=== PATIENT | male | born 1935 | race Caucasian/White ===

== ENCOUNTER 2018-10-28 22:10 | Inpatient (IN) ==
[2018-10-29] MEDS ORDERED: Fluticasone Propionate Nasal 50 MCG/SPRAY BOTTLE NS PRN (01:11)
[2018-10-29] MEDS ORDERED: Ipratropium/Albuterol Neb 3 ML IH PRN (01:12)
--- NOTE | 2018-10-29 01:49 | Internal Med History&Physical ---
Date of Encounter: 10/29/18 Time of Encounter: 01:49 Internal Medicine - H&P: HPI Chief complaint: syncope Admitted From: Hospital to Hospital Transfer Plans for Post Hospital Care: Transfer Jail Facility History of present illness: Rafi Tanner is an 83-year-old man with Parkinsons disease, cerebral aneurysms, CKD, COPD and known to have cerebral aneurysms undergoing watchful observation whose last admission was complicated by bowel obstruction requiring surgical intervention and PEG tube placement for enteral nutrition. He has suffered multiple syncopal episodes and was taken to [facility] for a syncopal episode that occurred while staff his residential were walking with him. He reports he passed out for less than 20 seconds and there was no loss of pulse or respirations. At [facility] he was found clinically and hemodynamically stable. Head CT was unremarkable and lab work revealed troponin of 0.07 which is a chronic finding for him. He was transferred here because of their inability to perform telemetry monitoring. On arrival here he says he does not know why he is here and he feels well. He denies chest pain, shortness of breath, headaches or dizziness. He is unable to give a history of what occurred. Vitals: Reviewed General: Elderly M lying in bed in NAD; resting tremor. Skin: Dry, warm. HEENT: Moist mucous membranes. No conjunctivae pallor. Neck: No lymphadenopathy. No JVD. No carotid bruits. No palpable thyroid. Chest: Diminished thoracic expansion. No wheezing, rales or rhonchi. Heart: Normal S1 & S2; rhythmic. No rubs or murmurs. Abdomen: Non-distended, soft and non-tender to palpation. No peritoneal reaction. Surgical site healing well and PEG site intact. Extremities: No clubbing, cyanosis or edema. No calf tenderness. Normal distal p ulses. Rheumatoid nodules present on hands. Neurological: Awake, alert and oriented to person, place and time. No focal deficits. Psych: Affect appropriate. Assessment/Plan 1. Syncopal episode: Reported by residential staff. Labs from [facility] revealed a sodium of 151 which is concerning for dehydration and this could be a potential etiology. His EKG here shows normal sinus rhythm with a left anterior fascicular block but is otherwise unchanged. His physical exam is unremarkable and he has no focal deficits. CT scan revealed no acute abnormalities. His troponin is stable and unchanged from previous values and therefore no indication to continue to pursue this especially in the absence of other clinical signs or symptoms. We will monitor him on telemetry with fall precautions. Will repeat electrolyte panel here for review and start fluid resuscitation as needed. 2. Bowel obstruction: S/p surgical repair with PEG placement for aspiration diagnosed. Will place on nectar thickened and enteral feeds. 3. Her concerns disease: We will continue dopamine agonist therapy. 4. Hypertension: Continue oral antihypertensive therapy. 5. COPD: Currently asymptomatic without signs of acute exacerbation. We will order nebulizer therapy as needed and continued daily LABA/ICS. Past Med Surg Social Fam HX - Past Medical History Medical history: asthma, hypertension, RA, other Additional medical history: parkinsons Psychiatric history: anxiety - Past Surgical History Surgical History: cancer surgery, cholecystectomy - Social History Smoking Status: Never smoker Smokeless Tobacco Status: No Alcohol use: none Drug use: none Internal Medicine - H&P: Meds Albuterol Sulfate [Albuterol Inhaler] 2 puff IH Q4HR PRN 12/15/15 [History] Fluticasone Propionate Nasal [Flonase] 1 spr NS BID PRN 12/15/15 [History] Tamsulosin HCl [Flomax] 0.4 mg PO DAILY 08/24/18 [History] Carbidopa/Levodopa [Carbidopa-Levodopa 25-100 Tab] 1 tab PO 1200,2000 08/26/18 [History] Carbidopa/Levodopa [Carbidopa-Levodopa 25-100 Tab] 2 tab PO 0800,1600 08/26/18 [History] Metoprolol Succinate 50 mg PO DAILY 08/26/18 [History] Melatonin 3 mg PO HS tablet 09/25/18 [Rx] Quetiapine Fumarate [Seroquel] 50 mg PO HS tablet 09/25/18 [Rx] Allergy/AdvReac Type Severity Reaction Status Date / Time No Known Allergies Allergy Verified 08/26/18 15:32 All Systems PM: A 10-system review of systems was performed and is negative for pertinent findings except as documented above in the HPI. Family history reviewed and found non-contributory. - Constitutional Vitals: Temp Pulse Resp BP Pulse Ox 97.7 F 82 14 124/76 92 10/29/18 00:53 10/29/18 00:53 10/29/18 00:53 10/29/18 00:53 10/29/18 00:53 Exam: . - Time Spent With Patient Total time spent is greater than 50% in coordination of care (as documented) at patient's floor/unit and/or counseling patient: Greater than 35 minutes
[2018-10-29 01:59] LABS: Basophils # 0.1 K/mcL (0.0-0.2); Basophils % 0.4 %; Eosinophils # 0.1 K/mcL (0.0-0.6); Eosinophils % 0.8 %; Hemoglobin 10.3 g/dL (12.9-16.9); Immature Granulocytes % 0.6 % (0-4); Lymphocytes # 3.4 K/mcL (0.6-4.6); Lymphocytes % 21.5 %; Mean Corpuscular HGB Conc 31.2 g/dL (31.6-35.5); Mean Corpuscular Hemoglobin 30.5 pg (28.0-33.3); Mean Corpuscular Volume 97.6 fL (83.0-100.0); Mean Platelet Volume 10.6 fL (9.4-12.4); Monocytes % 6.3 %; Platelet Count 288 K/mcL (140-400); Red Blood Count 3.38 M/mcL (4.19-5.50); Red Cell Distribution Width 14.2 % (11.5-14.5); Segmented Neutrophils % 70.4 %; White Blood Count 15.6 K/mcL (4.3-11.1)
[2018-10-29] MEDS: Melatonin 3 MG TABLET PO SCH ×2 (02:02→21:20)
[2018-10-29 02:06] LABS: INR 1.1; Prothrombin Time 12.4 Seconds (9.4-12.1)
[2018-10-29 02:09] LABS: Activated Partial Thrombo Time 27.5 Seconds (26.0-36.0)
[2018-10-29 02:20] LABS: Calcium 9.2 mg/dL (8.6-10.3); Potassium 4.6 mEq/L (3.5-5.1)
[2018-10-29 02:23] LABS: Troponin I 0.05 ng/mL (< 0.04)
[2018-10-29] MEDS ORDERED: D5% in 0.45% NACL 1,000 ML IVC SCH (04:30)
[2018-10-29] MEDS: *HR* Heparin 5,000 UNIT/ML VIAL SQ SCH ×3 (05:13→21:21)
[2018-10-29 06:35] LABS: Bilirubin,Urine Negative (Negative); Blood,Urine Negative (Negative); Clarity,Urine Clear (Clear); Color,Urine Yellow (Yellow); Glucose,Urine (UA) Normal (Normal); Ketones,Urine Negative (Negative); Leukocyte Esterase,Urine Negative (Negative); Nitrite,Urine Negative (Negative); Protein,Urine Negative (Neg-Trace); Specific Gravity,Urine 1.006 (1.010-1.025); Urobilinogen,Urine Normal (Normal)
[2018-10-29] MEDS: Metoprolol XL (24 HR) Succ 50 MG TAB.ER.24H PO SCH (08:00)
[2018-10-29] MEDS: Carbidopa/Levodopa 25/100 TABLET PO SCH ×4 (08:00→21:20)
[2018-10-29] MEDS ORDERED: 0.9 % Sodium Chloride 500 ML ONE (12:21)
[2018-10-29] MEDS: D5% in 0.45% NACL 1,000 ML IVC SCH ×2 (13:32→21:32)
--- NOTE | 2018-10-29 16:18 | Event Note ---
Date of Encounter: 10/29/18 Time of Encounter: 10:30 Mr. Tanner is a 83 y/o M with known PMH of Parkinsons disease, cerebral aneurysms, CKD, COPD and known to have cerebral aneurysms undergoing watchful observation whose last admission was complicated by bowel obstruction requiring surgical intervention and PEG tube placement for enteral nutrition. He was sent to [facility], from there he was taken [facility] now with syncopal episodes. Head CT was unremarkable and lab work revealed troponin of 0.07 which is a chronic finding for him. He does have hypernatremia too with Na @ 151. He was admitted in the hospital and placed him on inspector experimental assembly. His repet trop came back as 0.05. He is more alert, awake and O x 3. This morning his BP was in low 70's. SO gave him 500 c NS bolus and now his BP in 100's. Cont IV hydration. Cont trend on his Trop. His elevated trop most likely due to demand ischemia
[2018-10-29] MEDS: Famotidine 20 MG TABLET PO SCH ×2 (17:18→21:20)
[2018-10-29 17:25] LABS: Calcium 8.3 mg/dL (8.6-10.3); Magnesium 2.4 mg/dL (1.6-2.6); Potassium 3.9 mEq/L (3.5-5.1)
--- NOTE | 2018-10-29 17:26 | Electrocardiograph Report ---
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
[2018-10-29 17:29] LABS: Troponin I 0.04 ng/mL (< 0.04)
[2018-10-30 03:17] LABS: Basophils # 0.1 K/mcL (0.0-0.2); Basophils % 0.5 %; Eosinophils # 0.3 K/mcL (0.0-0.6); Hematocrit 30.1 % (37.5-50.1); Hemoglobin 9.6 g/dL (12.9-16.9); Immature Granulocytes % 0.6 % (0-4); Lymphocytes # 3.2 K/mcL (0.6-4.6); Lymphocytes % 24.4 %; Mean Corpuscular HGB Conc 31.9 g/dL (31.6-35.5); Mean Corpuscular Hemoglobin 30.8 pg (28.0-33.3); Mean Corpuscular Volume 96.5 fL (83.0-100.0); Mean Platelet Volume 10.4 fL (9.4-12.4); Monocytes # 1.1 K/mcL (0.0-1.3); Monocytes % 8.1 %; Neutrophils # 8.6 K/mcL (1.6-8.9); Platelet Count 229 K/mcL (140-400); Red Blood Count 3.12 M/mcL (4.19-5.50); Red Cell Distribution Width 14.5 % (11.5-14.5); Segmented Neutrophils % 64.4 %; White Blood Count 13.3 K/mcL (4.3-11.1)
[2018-10-30 03:39] LABS: Calcium 8.6 mg/dL (8.6-10.3); Magnesium 2.5 mg/dL (1.6-2.6)
[2018-10-30] MEDS: Acetaminophen 325 MG TABLET PO PRN ×3 (06:01→21:33)
[2018-10-30] MEDS: *HR* Heparin 5,000 UNIT/ML VIAL SQ SCH ×3 (06:06→21:10)
[2018-10-30] MEDS: Famotidine 20 MG TABLET PO SCH ×2 (07:36→21:10)
[2018-10-30] MEDS: Metoprolol XL (24 HR) Succ 50 MG TAB.ER.24H PO SCH (07:36)
[2018-10-30] MEDS: Carbidopa/Levodopa 25/100 TABLET PO SCH ×4 (07:36→21:10)
--- NOTE | 2018-10-30 10:15 | Internal Med Progress Note ---
Hospitalist Progress Note - Encounter Date of Encounter: 10/30/18 Time of Encounter: 10:13 - Subjective Interval History: Pt seen and examined in the room. He reported that he still feels lightheadedness while standing. But denies chest pain, sob, or palpitation. - Exam Vitals: Temp Pulse Resp BP Pulse Ox 97.9 F 71 18 87/51 98 10/30/18 07:35 10/30/18 08:46 10/30/18 09:40 10/30/18 08:46 10/30/18 09:40 Exam: PHYSICAL EXAMINATION: GENERAL APPEARANCE: The patient is alert, oriented and in no acute distress. HEENT: Head is normocephalic. The sinuses are nontender. Pupils are equal and reactive. The nares are patent. Oropharynx clear without lesions. NECK: Supple without lymphadenopathy. HEART: Regular rate and rhythm. LUNGS: No crackles or wheezes are heard. ABDOMEN: Soft, nontender, nondistended with good bowel sounds heard. Inguinal area is normal. EXTREMITIES: Without cyanosis, clubbing or edema. NEUROLOGICAL: Gross nonfocal. SKIN: Warm and dry without any rash. - Assessment and Plan (1) Syncope Current Visit: Yes Status: Acute Assessment and Plan: Rafi Tanner is an 83-year-old man with Parkinsons disease, CKD, COPD, and known to have cerebral aneurysms undergoing watchful observation whose last admission was complicated by bowel obstruction requiring surgical intervention and PEG tube placement for enteral nutrition. He has suffered multiple syncopal episodes and was taken to [facility] for a syncopal episode that occurred while staff his detention were walking with him. - His vitals were notable for episodic low BP. Trop was normal. EKG showed LAFB. - Was found high Na level and received IVF, Na level currently normal. - Pt have multiple risk factors including Parkinson's disease and BPH currently on Flomax. - ECHO in 06/2018 was unremarkable. will not repeat. - Orthostatic BP this morning showed low BP, 87/51 laying and 79/51 sitting, HR about 70. - Carotid doppler ordered. - BB dose lowered. Continue monitoring BP. - Elastic hose ordered. pt encouraged to drink a little more water as long as his kidney can tolerated, has known Hx of CKD. - May try midodrine or fludrocortisole if symptoms persist or worsen. (2) Leukocytosis Current Visit: Yes Status: Resolved Assessment and Plan: No signs of infection. UA normal. CXR no consolidation. Blood Cx pending. (3) Hypernatremia Current Visit: Yes Status: Acute Assessment and Plan: Received IVF, Na currently 145. (4) Parkinson's disease Current Visit: No Status: Chronic Assessment and Plan: Stable, continue home meds. Parkinson' disease has known long-term complication of syncope due to orthostatic hypotension. Education provided about fall and safety precaution. (5) HTN (hypertension) Current Visit: No Status: Acute Assessment and Plan: Episodic low BP, Metoprolol dose decreased to 50 mg daily from 100 mg. Continue monitoring. (6) CKD (chronic kidney disease), stage III Current Visit: No Status: Chronic Assessment and Plan: Cr at baseline. Continue monitoring. (7) DVT prophylaxis Current Visit: Yes Status: Acute Assessment and Plan: Heparin sq. - Time Spent with Patient Total time spent is greater than 50% in coordination of care (as documented) at patient's floor/unit and/or counseling patient: Greater than 35 minutes Plan of Care Discussed with: patient Internal Medicine: Result - Labs CBC & Chem 7: 10/30/18 03:03 10/30/18 03:03 Labs: Short CBC 10/30/18 Range/Units 03:03 WBC 13.3 H (4.3-11.1) K/mcL Hgb 9.6 L (12.9-16.9) g/dL Hct 30.1 L (37.5-50.1) % Plt Count 229 (140-400) K/mcL Neutrophils # 8.6 (1.6-8.9) K/mcL BMP 10/29/18 10/30/18 16:19 03:03 Sodium 145 145 Potassium 3.9 4.0 Chloride 112 H 112 H Carbon Dioxide 30 H 27 BUN 81 H 74 H Creatinine 1.71 H 1.55 H Glucose 118 H 114 H Calcium 8.3 L 8.6 Cardiac Enzymes 10/29/18 Range/Units 16:19 Troponin I 0.04 H* (< 0.04) ng/mL - ABG Interpretation ABG results: PT/INR, D-dimer PT 12.4 Seconds (9.4-12.1) H 10/29/18 01:38 - Impressions Impressions Chest X-Ray 10/30/18 08:42 IMPRESSION: 1. Minimal prominence of the interstitial markings bilaterally. 2. Minimal left basilar atelectasis. 3. Otherwise, no focal consolidation. D/ / Jaime Givens MD / Jaime Givens MD Interpreting Provider: Jaime Givens MD Consult Discharge Plan - Plan Referrals: Yossi Snell MD [Partnered Physician] - (1) Syncope Qualifiers: Syncope type: unspecified Qualified Code(s): R55 - Syncope and collapse (2) Leukocytosis Qualifiers: Leukocytosis type: unspecified Qualified Code(s): D72.829 - Elevated white blood cell count, unspecified (5) HTN (hypertension) Qualifiers: Hypertension type: essential hypertension Qualified Code(s): I10 - Essential (primary) hypertension
[2018-10-30] MEDS: Methyl Salicylate/Menthol 28 GM TUBE TP PRN (14:40)
[2018-10-30] MEDS: clonazePAM 0.5 MG TABLET PO PRN (17:08)
[2018-10-30] MEDS: Melatonin 3 MG TABLET PO SCH (21:10)
[2018-10-31] MEDS: *HR* Heparin 5,000 UNIT/ML VIAL SQ SCH ×3 (05:18→20:56)
[2018-10-31 05:23] LABS: Basophils # 0.1 K/mcL (0.0-0.2); Basophils % 0.8 %; Eosinophils # 0.3 K/mcL (0.0-0.6); Hematocrit 30.2 % (37.5-50.1); Hemoglobin 9.3 g/dL (12.9-16.9); Immature Granulocytes % 0.6 % (0-4); Lymphocytes # 3.1 K/mcL (0.6-4.6); Lymphocytes % 29.4 %; Mean Corpuscular HGB Conc 30.8 g/dL (31.6-35.5); Mean Corpuscular Hemoglobin 29.7 pg (28.0-33.3); Mean Corpuscular Volume 96.5 fL (83.0-100.0); Mean Platelet Volume 10.9 fL (9.4-12.4); Monocytes # 0.9 K/mcL (0.0-1.3); Monocytes % 8.8 %; Neutrophils # 6.1 K/mcL (1.6-8.9); Platelet Count 241 K/mcL (140-400); Red Blood Count 3.13 M/mcL (4.19-5.50); Red Cell Distribution Width 14.3 % (11.5-14.5); Segmented Neutrophils % 57.4 %; White Blood Count 10.5 K/mcL (4.3-11.1)
[2018-10-31 05:40] LABS: BUN/Creatinine Ratio 40 (6-26); Blood Urea Nitrogen 48 mg/dL (8-23); Calcium 8.6 mg/dL (8.6-10.3); Carbon Dioxide 27 mEq/L (23-29); Chloride 112 mEq/L (98-107); Glucose 112 mg/dL (70-105); Osmolality,Calculated 311 (280-300); Potassium 3.8 mEq/L (3.5-5.1); Sodium 144 mEq/L (136-145); eGFR For African Americans > 60 (> 60); eGFR For Non-African Americans 58 (> 60)
[2018-10-31] MEDS: Famotidine 20 MG TABLET PO SCH ×2 (08:21→20:55)
[2018-10-31] MEDS: Metoprolol XL (24 HR) Succ 50 MG TAB.ER.24H PO SCH (08:21)
[2018-10-31] MEDS: Carbidopa/Levodopa 25/100 TABLET PO SCH ×4 (08:21→20:55)
--- NOTE | 2018-10-31 14:54 | Internal Med Progress Note ---
Hospitalist Progress Note - Encounter Date of Encounter: 10/31/18 Time of Encounter: 14:51 - Subjective Interval History: Patient was seen and examined orthostatic lightheadedness position change. However this has improved from previous orthostatic vital signs. We will place CHAS hose and add midodrine- patient will require greater than 2 midnights for further treatment patient will transition to inpatient status - Exam Vitals: Temp Pulse Resp BP Pulse Ox 97.9 F 69 16 124/66 95 10/31/18 11:38 10/31/18 11:38 10/31/18 11:38 10/31/18 11:38 10/31/18 11:38 Exam: PHYSICAL EXAMINATION: GENERAL APPEARANCE: The patient is alert, oriented and in no acute distress. HEENT: Head is normocephalic. The sinuses are nontender. Pupils are equal and reactive. The nares are patent. Oropharynx clear without lesions. NECK: Supple without lymphadenopathy. HEART: Regular rate and rhythm. LUNGS: No crackles or wheezes are heard. ABDOMEN: Soft, nontender, nondistended with good bowel sounds heard. Inguinal area is normal. EXTREMITIES: Without cyanosis, clubbing or edema. NEUROLOGICAL: Gross nonfocal. SKIN: Warm and dry without any rash. - Assessment and Plan (1) Parkinson's disease Current Visit: No Status: Chronic Assessment and Plan: Stable, continue home meds. Parkinson' disease has known long-term complication of syncope due to orth ostatic hypotension. Education provided about fall and safety precaution. (2) HTN (hypertension) Current Visit: No Status: Acute Assessment and Plan: Episodic low BP, Metoprolol dose decreased to 50 mg daily from 100 mg. Continue monitoring. (3) CKD (chronic kidney disease), stage III Current Visit: No Status: Chronic Assessment and Plan: Cr at baseline. Continue monitoring. (4) DVT prophylaxis Current Visit: Yes Status: Acute Assessment and Plan: Heparin sq. (5) Leukocytosis Current Visit: Yes Status: Resolved Assessment and Plan: Improved No signs of infection. UA normal. CXR no consolidation. Blood Cx pending. (6) Syncope Current Visit: Yes Status: Acute Assessment and Plan: Rafi Tanner is an 83-year-old man with Parkinsons disease, CKD, COPD, and known to have cerebral aneurysms undergoing watchful observation whose last admission was complicated by bowel obstruction requiring surgical intervention and PEG tube placement for enteral nutrition. He has suffered multiple syncopal episodes and was taken to [facility] for a syncopal episode that occurred while staff his senior living were walking with him. - His vitals were notable for episodic low BP. Trop was normal. EKG showed LAFB. - Was found high Na level and received IVF, Na level currently normal. - Pt have multiple risk factors including Parkinson's disease and BPH currently on Flomax. - ECHO in 06/2018 was unremarkable. will not repeat. - Orthostatic BP this morning showed 139/66 101/55 92/53 patient was symptomatic - Carotid doppler ordered nonstenotic plaque bilaterally - BB dose lowered. Continue monitoring BP. - Elastic hose ordered. pt encouraged to drink a little more water as long as his kidney can tolerated, has known Hx of CKD. Initiated on low dose Midodrine - (7) Hypernatremia Current Visit: Yes Status: Resolved Assessment and Plan: Resolved continue to monitor - Time Spent with Patient Total time spent is greater than 50% in coordination of care (as documented) at patient's floor/unit and/or counseling patient: Internal Medicine: Result - Labs CBC & Chem 7: 10/31/18 05:00 10/31/18 05:00 Labs: Short CBC 10/31/18 Range/Units 05:00 WBC 10.5 (4.3-11.1) K/mcL Hgb 9.3 L (12.9-16.9) g/dL Hct 30.2 L (37.5-50.1) % Plt Count 241 (140-400) K/mcL Neutrophils # 6.1 (1.6-8.9) K/mcL BMP 10/31/18 05:00 Sodium 144 Potassium 3.8 Chloride 112 H Carbon Dioxide 27 BUN 48 H Creatinine 1.20 Glucose 112 H Calcium 8.6 - ABG Interpretation ABG results: PT/INR, D-dimer PT 12.4 Seconds (9.4-12.1) H 10/29/18 01:38 - VTE Documentation of Mechanical Device: Graduated compression elastic hosiery Consult Discharge Plan - Plan Referrals: Yossi Snell MD [Partnered Physician] - (2) HTN (hypertension) Qualifiers: Hypertension type: essential hypertension Qualified Code(s): I10 - Essential (primary) hypertension (5) Leukocytosis Qualifiers: Leukocytosis type: unspecified Qualified Code(s): D72.829 - Elevated white blood cell count, unspecified (6) Syncope Qualifiers: Syncope type: unspecified Qualified Code(s): R55 - Syncope and collapse
[2018-10-31] MEDS: Methyl Salicylate/Menthol 28 GM TUBE TP PRN (20:54)
[2018-10-31] MEDS: Melatonin 3 MG TABLET PO SCH (20:55)
[2018-11-01] MEDS: *HR* Heparin 5,000 UNIT/ML VIAL SQ SCH ×3 (06:29→22:02)
[2018-11-01] MEDS: Carbidopa/Levodopa 25/100 TABLET PO SCH ×4 (10:39→19:42)
[2018-11-01] MEDS: Metoprolol XL (24 HR) Succ 50 MG TAB.ER.24H PO SCH (10:39)
[2018-11-01] MEDS: Famotidine 20 MG TABLET PO SCH ×2 (10:40→19:40)
[2018-11-01] MEDS: Acetaminophen 325 MG TABLET PO PRN ×2 (10:43→19:41)
--- NOTE | 2018-11-01 13:37 | Discharge Summary ---
- NOTES TO OUTPATIENT PROVIDER Notes to Outpatient Provider: Presented with syncopal episode-blood pressure was low on presentation beta alexandra dose was lowered syncope workup was completed- he did have positive orthostatic vital signs CHAS hose were applied he was initiated on low-dose midodrine-orthostatics continue however not symptomatic - we will need to monitor as outpatient and adjust as needed Orders not resulted at time of discharge: Pending orders 10/30/18 06:16 Culture,Blood [BC] Routine Date of Encounter: 11/01/18 Time of Encounter: 13:33 - Discharge Diagnosis (1) Parkinson's disease Priority: Secondary Status: Chronic (2) HTN (hypertension) Priority: Secondary Status: Acute Qualifiers: Hypertension type: essential hypertension Qualified Code(s): I10 - Essential (primary) hypertension (3) CKD (chronic kidney disease), stage III Priority: Secondary Status: Chronic (4) Leukocytosis Priority: Secondary Status: Resolved Qualifiers: Leukocytosis type: unspecified Qualified Code(s): D72.829 - Elevated white blood cell count, unspecified (5) Syncope Priority: Primary Status: Acute Qualifiers: Syncope type: unspecified Qualified Code(s): R55 - Syncope and collapse (6) Hypernatremia Priority: Secondary Status: Resolved Hospital course: Mr. Tanner is a 83 year old male past medical history of Parkinson's disease cerebral aneurysms-which are being monitored CKD COPD--bowel obstruction with surgical intervention requiring PEG tube placement for enteral nutrition. He was admitted [facility] and during physical therapy patient had a syncopal episode. He was taken to an outlying facility head CT was unremarkable labwork did reveal a slightly elevated troponin Kimberlyn appears to be chronic finding he was hypernatremic. He was admitted and was noted to have low blood pressure and was given IV fluids beta alexandra and losartan was also decreased- syncope workup was negative except for positive orthostatic vital signs. Patient was placed on low dose Midorine - Time Spent with Patient Total time spent providing and/or coordinating discharge services: - Discharge Medications Prescriptions: New Midodrine [ProAmatine] 2.5 mg PO 0800,1200 tablet Metoprolol XL (24 HR) Succ [Toprol Xl] 50 mg PO DAILY tab.er.24h Losartan [Cozaar] 50 mg PO DAILY tablet Continued Albuterol Sulfate [Albuterol Inhaler] 2 puff IH Q4HR PRN PRN Reason: Shortness Of Breath Fluticasone Propionate Nasal [Flonase] 1 spr NS BID PRN PRN Reason: Allergy Symptoms Tamsulosin HCl [Flomax] 0.4 mg PO DAILY Carbidopa/Levodopa [Carbidopa-Levodopa 25-100 Tab] 2 tab PO 0800,1600 Carbidopa/Levodopa [Carbidopa-Levodopa 25-100 Tab] 1 tab PO 1200,1999 Melatonin 3 mg PO HS tablet Albuterol Neb [Proventil Neb] 2.5 mg IH Q4H PRN PRN Reason: Cough clonazePAM [Clonazepam] 0.5 mg PO Q12H PRN PRN Reason: Anxiety Docusate [Colace] 200 mg PO DAILY Potassium Chloride [K-Tab ER] 20 meq PO BID Quetiapine Fumarate [Seroquel] 50 mg PO HS Discontinued Metoprolol Succinate [Toprol Xl] 50 mg PO DAILY No Action Furosemide [Lasix] 40 mg PO BID PRN PRN Reason: PITTING EDEMA Lactulose 10 ml PO DAILY PRN PRN Reason: Constipation Losartan Potassium [Cozaar] 50 mg GTUBE DAILY Tramadol HCl [Ultram] 50 mg PO Q6H PRN PRN Reason: Pain Home Medications: Albuterol Sulfate [Albuterol Inhaler] 2 puff IH Q4HR PRN 12/15/15 [History] Fluticasone Propionate Nasal [Flonase] 1 spr NS BID PRN 12/15/15 [History] Tamsulosin HCl [Flomax] 0.4 mg PO DAILY 08/24/18 [History] Carbidopa/Levodopa [Carbidopa-Levodopa 25-100 Tab] 1 tab PO 1200,199908/26/18 [History] Carbidopa/Levodopa [Carbidopa-Levodopa 25-100 Tab] 2 tab PO 0800,1600 08/26/18 [History] Melatonin 3 mg PO HS tablet 09/25/18 [Rx] Albuterol Neb [Proventil Neb] 2.5 mg IH Q4H PRN 10/30/18 [History] Docusate [Colace] 200 mg PO DAILY 10/30/18 [History] Furosemide [Lasix] 40 mg PO BID PRN 10/30/18 [History] Lactulose 10 ml PO DAILY PRN 10/30/18 [History] Losartan Potassium [Cozaar] 50 mg GTUBE DAILY 10/30/18 [History] Potassium Chloride [K-Tab ER] 20 meq PO BID 10/30/18 [History] Quetiapine Fumarate [Seroquel] 50 mg PO HS 10/30/18 [History] Tramadol HCl [Ultram] 50 mg PO Q6H PRN 10/30/18 [History] clonazePAM [Clonazepam] 0.5 mg PO Q12H PRN 10/30/18 [History] Losartan [Cozaar] 50 mg PO DAILY tablet 11/01/18 [Rx] Metoprolol XL (24 HR) Succ [Toprol Xl] 50 mg PO DAILY tab.er.24h 11/01/18 [Rx] Midodrine [ProAmatine] 2.5 mg PO 0800,1200 tablet 11/01/18 [Rx] Allergies/Adverse Reactions: Allergy/AdvReac Type Severity Reaction Status Date / Time No Known Allergies Allergy Verified 10/30/18 10:07 Date of admission: 10/29/18 00:40 Primary care physician: PCP NONE Consults: 10/29/18 01:48 Consult to Nutrition [CONS] Routine Comment: Consulting Provider: NUTRITION Reason for Dietary Consult: Tube Feed Start & Manage 10/29/18 12:15 Consult to Invasive Line Access Team [CONS] Stat Reason for Consult: poor access Line Type: EPIV 10/29/18 12:16 Consult to Invasive Line Access Team [CONS] Routine Reason for Consult: poor access Line Type: EPIV 10/30/18 08:55 Consult to Gifts Officer [CONS] Routine Reason for SW Consult: PATIENT FROM [place] Discharging clinician: Rosenda Alvarez Anticipated date of discharge: 11/01/18 - Constitutional Vitals: Temp Pulse Resp BP Pulse Ox 98.1 F 78 17 128/69 97 11/01/18 11:29 11/01/18 11:30 11/01/18 11:29 11/01/18 11:30 11/01/18 11:29 - Discharge Instructions Follow Up With: Yossi Snell MD [Partnered Physician] - - VTE Documentation of Mechanical Device: Graduated compression elastic hosiery
--- NOTE | 2018-11-01 15:25 | Internal Med Progress Note ---
Hospitalist Progress Note - Encounter Date of Encounter: 11/01/18 Time of Encounter: 15:17 - Subjective Interval History: Patient was seen and examined at bedside continue to experience symptomatic orthostatic hypotension. Patient is lightheaded upon standing with blood pressure dropping down to the 90s. We will increase and continue to monitor - Exam Vitals: Temp Pulse Resp BP Pulse Ox 98.1 F 78 17 128/69 97 11/01/18 11:29 11/01/18 11:30 11/01/18 11:29 11/01/18 11:30 11/01/18 11:29 Exam: PHYSICAL EXAMINATION: GENERAL APPEARANCE: The patient is alert, oriented and in no acute distress. HEENT: Head is normocephalic. The sinuses are nontender. Pupils are equal and reactive. The nares are patent. Oropharynx clear without lesions. NECK: Supple without lymphadenopathy. HEART: Regular rate and rhythm. LUNGS: No crackles or wheezes are heard. ABDOMEN: Soft, nontender, nondistended with good bowel sounds heard. Inguinal area is normal. EXTREMITIES: Without cyanosis, clubbing or edema. NEUROLOGICAL: Gross nonfocal. SKIN: Warm and dry without any rash. - Assessment and Plan (1) Parkinson's disease Current Visit: No Status: Chronic Assessment and Plan: Stable, continue home meds. Parkinson' disease has known long-term complication of syncope due to orthostatic hypotension. Education provided about fall and safety precaution. (2) HTN (hypertension) Current Visit: No Status: Acute Assessment and Plan: Episodic low BP, Metoprolol dose decreased to 50 mg daily from 100 mg. as well as decrease losartan to 50 mg daily Continue monitoring. (3) CKD (chronic kidney disease), stage III Current Visit: No Status: Chronic Assessment and Plan: Cr at baseline. Continue monitoring. (4) Leukocytosis Current Visit: Yes Status: Resolved Assessment and Plan: Improved No signs of infection. UA normal. CXR no consolidation. Blood Cx pending. (5) Syncope Current Visit: Yes Status: Acute Assessment and Plan: Rafi Tanner is an 83-year-old man with Parkinsons disease, CKD, COPD, and known to have cerebral aneurysms undergoing watchful observation whose last admission was complicated by bowel obstruction requiring surgical intervention and PEG tube placement for enteral nutrition. He has suffered multiple syncopal episodes and was taken to [facility] tonight for a syncopal episode that occurred while staff his correction were walking with him. - His vitals were notable for episodic low BP. Trop was normal. EKG showed LAFB. - Was found high Na level and received IVF, Na level currently normal. - Pt have multiple risk factors including Parkinson's disease and BPH currently on Flomax. - ECHO in 06/2018 was unremarkable. will not repeat. - Orthostatic BP this morning showed 139/66 101/55 92/53 patient was symptomatic - Carotid doppler ordered nonstenotic plaque bilaterally - BB dose lowered. Continue monitoring BP. - Elastic hose ordered. pt encouraged to drink a little more water as long as his kidney can tolerated, has known Hx of CKD. Initiated on low dose Midodrine 11/01 Sodium level improved encourage patient to drink fluids Multiple risk factors including Parkinson's BPH and currently on Flomax Orthostatic blood pressure continues to show significant drop in patient is symptomatic Initiated on Midodrine will increase BB dose lowered cont monitoring BP Cont CHAS hose - (6) Hypernatremia Current Visit: Yes Status: Resolved Assessment and Plan: Resolved continue to monitor - Time Spent with Patient Total time spent is greater than 50% in coordination of care (as documented) at patient's floor/unit and/or counseling patient: Internal Medicine: Result - Labs CBC & Chem 7: 10/31/18 05:00 10/31/18 05:00 - ABG Interpretation ABG results: PT/INR, D-dimer PT 12.4 Seconds (9.4-12.1) H 10/29/18 01:38 - VTE Documentation of Mechanical Device: Graduated compression elastic hosiery Consult Discharge Plan - Plan Referrals: Yossi Snell MD [Partnered Physician] - (2) HTN (hypertension) Qualifiers: Hypertension type: essential hypertension Qualified Code(s): I10 - Essential (primary) hypertension (4) Leukocytosis Qualifiers: Leukocytosis type: unspecified Qualified Code(s): D72.829 - Elevated white blood cell count, unspecified (5) Syncope Qualifiers: Syncope type: unspecified Qualified Code(s): R55 - Syncope and collapse
[2018-11-01] MEDS ORDERED: 0.9 % Sodium Chloride 1,000 ML IVC SCH (15:30)
[2018-11-01] MEDS: Melatonin 3 MG TABLET PO SCH (19:40)
[2018-11-01] MEDS: clonazePAM 0.5 MG TABLET PO PRN (19:40)
[2018-11-02] MEDS: *HR* Heparin 5,000 UNIT/ML VIAL SQ SCH ×3 (05:02→21:27)
[2018-11-02 06:52] LABS: BUN/Creatinine Ratio 33 (6-26); Blood Urea Nitrogen 36 mg/dL (8-23); Calcium 8.3 mg/dL (8.6-10.3); Carbon Dioxide 26 mEq/L (23-29); Chloride 109 mEq/L (98-107); Glucose 111 mg/dL (70-105); Osmolality,Calculated 305 (280-300); Potassium 3.6 mEq/L (3.5-5.1); Sodium 143 mEq/L (136-145); eGFR For African Americans > 60 (> 60); eGFR For Non-African Americans > 60 (> 60)
[2018-11-02] MEDS: Famotidine 20 MG TABLET PO SCH ×2 (09:29→21:27)
[2018-11-02] MEDS: Acetaminophen 325 MG TABLET PO PRN (09:29)
[2018-11-02] MEDS: Metoprolol XL (24 HR) Succ 50 MG TAB.ER.24H PO SCH (09:30)
[2018-11-02] MEDS: Carbidopa/Levodopa 25/100 TABLET PO SCH ×4 (09:30→21:27)
[2018-11-02 14:31] LABS: Basophils # 0.1 K/mcL (0.0-0.2); Basophils % 0.7 %; Eosinophils # 0.4 K/mcL (0.0-0.6); Eosinophils % 3.3 %; Hematocrit 29.5 % (37.5-50.1); Hemoglobin 9.2 g/dL (12.9-16.9); Immature Granulocytes % 0.8 % (0-4); Lymphocytes # 2.8 K/mcL (0.6-4.6); Lymphocytes % 25.6 %; Mean Corpuscular HGB Conc 31.2 g/dL (31.6-35.5); Mean Corpuscular Hemoglobin 30.7 pg (28.0-33.3); Mean Corpuscular Volume 98.3 fL (83.0-100.0); Mean Platelet Volume 10.2 fL (9.4-12.4); Monocytes # 0.9 K/mcL (0.0-1.3); Monocytes % 8.1 %; Neutrophils # 6.7 K/mcL (1.6-8.9); Platelet Count 217 K/mcL (140-400); Red Cell Distribution Width 14.5 % (11.5-14.5); Segmented Neutrophils % 61.5 %; White Blood Count 10.9 K/mcL (4.3-11.1)
--- NOTE | 2018-11-02 15:05 | Neurology - Consult Note ---
<Arcadio Blair - Last Filed: 11/02/18 15:33> Date of Encounter: 11/02/18 Time of Encounter: 14:56 Assessment and Plan (1) Parkinson's disease Current Visit: No Status: Chronic Neurology has been consulted as the patient has had a syncopal event with a negative syncopal workup but positive orthostasis. He has a h/o Parkinson's disease and is taking Sinemet. The Internal Medicine team has requested medication recommendations as there is concerns as to whether or not the Sinemet is contributory to the orthostasis. In that regard the patient has been on Sinemet but has continued to slowly decline. At this juncture if we decrease th e medication his condition will further worsening and as such this would not be ideal. Therefore our recommendations are to keep Sinemet at its current dose and consider down titration of oral antihypertensive medications as tolerated. This should be done slowly so as to avoid rebound hypertension especially in the setting of known cerebral aneurysms. (2) Syncope Current Visit: Yes Status: Acute Qualifiers: Syncope type: unspecified Qualified Code(s): R55 - Syncope and collapse History of Present Illness Chief complaint: Positive orthostasis and syncope HPI: Mr. Tanner is a 83 year old male with a PMH of COPD, CKD, known cerebral aneurysms undergoing watchful observation and Parkinson's disease who follows with [facility]. Presented to [facility] from and [facility] for syncope. He reports that he was completing PT at [facility] and during therapy he had a syncopal episode. He has had a recent TTE with an EF of 70%, mild LV DD, mild LVH, mild and no PHTN. The b/l carotid arteries have minimal plaque. He was found to have positive orthostasis. Given that he has a h/o Parkinson's and is on Sinemet Neurology has been consulted to evaluate whether or not the Sinemet is contributing to orthostasis and if so provide recommendations regarding dose adjustments. Past Med Surg Social Fam HX - Past Medical History Medical history: asthma, hypertension, RA, other Additional medical history: parkinsons Psychiatric history: anxiety - Past Surgical History Surgical History: cancer surgery, cholecystectomy - Social History Smoking Status: Never smoker Smokeless Tobacco Status: No Alcohol use: none Drug use: none - Additional Family History Additional family history: Reviewed and noncontributory Medications and Allergies Albuterol Sulfate [Albuterol Inhaler] 2 puff IH Q4HR PRN 12/15/15 [History] Fluticasone Propionate Nasal [Flonase] 1 spr NS BID PRN 12/15/15 [History] Tamsulosin HCl [Flomax] 0.4 mg PO DAILY 08/24/18 [History] Carbidopa/Levodopa [Carbidopa-Levodopa 25-100 Tab] 1 tab PO 1200,2000 08/26/18 [History] Carbidopa/Levodopa [Carbidopa-Levodopa 25-100 Tab] 2 tab PO 0800,1600 08/26/18 [History] Melatonin 3 mg PO HS tablet 09/25/18 [Rx] Albuterol Neb [Proventil Neb] 2.5 mg IH Q4H PRN 10/30/18 [History] Docusate [Colace] 200 mg PO DAILY 10/30/18 [History] Furosemide [Lasix] 40 mg PO BID PRN 10/30/18 [History] Lactulose 10 ml PO DAILY PRN 10/30/18 [History] Losartan Potassium [Cozaar] 50 mg GTUBE DAILY 10/30/18 [History] Potassium Chloride [K-Tab ER] 20 meq PO BID 10/30/18 [History] Quetiapine Fumarate [Seroquel] 50 mg PO HS 10/30/18 [History] Tramadol HCl [Ultram] 50 mg PO Q6H PRN 10/30/18 [History] clonazePAM [Clonazepam] 0.5 mg PO Q12H PRN 10/30/18 [History] Losartan [Cozaar] 50 mg PO DAILY tablet 11/01/18 [Rx] Metoprolol XL (24 HR) Succ [Toprol Xl] 50 mg PO DAILY tab.er.24h 11/01/18 [Rx] Midodrine [ProAmatine] 2.5 mg PO 0800,1200 tablet 11/01/18 [Rx] Allergy/AdvReac Type Severity Reaction Status Date / Time No Known Allergies Allergy Verified 10/30/18 10:07 All Systems: The remainder of the systems were reviewed and are negative Review of Systems: REVIEW OF SYSTEMS GENERAL: Negative for any nausea, vomiting, fevers, chills, or weight loss, fatigue, exercise tolerance, legs feel heavy, slower to complete tasks, impaired mobility NEUROLOGIC: Negative for any visual disturbances, facial asymmetry, dysphagia, dysarthria, hemiparesis, hemisensory deficits, vertigo, ataxia, seizures, paralysis, tingling, numbness, unilateral weakness or numbness/tingling Positive - bradykinesia and rigidity x all 4 extremities CARDIAC: Positive - syncope Negative - chest pain, palpitations GI Negative - N/V/D Negative - frequent urination, dysuria Physical Examination - Vital Signs Vital Signs: Initial Vital Signs Temp Pulse Resp BP Pulse Ox 97.7 F 82 14 124/76 92 10/29/18 00:53 10/29/18 00:53 10/29/18 00:53 10/29/18 00:53 10/29/18 00:53 - Exam Exam: Examination: General Examination: *CONSTITUTIONAL: Alert and oriented x3, no acute distress *GENERAL APPEARANCE OF PATIENT Generally ill appearing male *EYES: pupils equal, round, reactive to light and accommodation, conjunctiva clear *CARDIOVASCULAR no peripheral edema, distal temperature normal, dorsalis pedis pulses normal. See vitals Musculoskeletal: *GAIT AND STATION Deferred d/t leg weakness and syncope with orthostasis *ASSESSMENT OF MUSCLE STRENGTH IN THE UPPER AND LOWER EXTREMITIES bilateral deltoid, bicep, tricep, lofter strength, hip flexors ,anterior tibialis, dorsoflexion of the foot 5/5 *MUSCLE TONE IN THE UPPER AND LOWER EXTREMITIES bradykinesia and rigidity in all 4 extremities Neurological: *ORIENTATION to person, situation, time and place *RECURRENT AND REMOTE MEMORY intact *ATTENTION AND CONCENTRATION are normal *LANGUAGE FUNCTION no significant aphasia or dysarthia was noted. *FUND OF KNOWLEDGE aware of current events, past history, vocabulary *MENTAL attention span and concentration normal. *CN II optic fundi were normal, no papilledema noted. *CN III,IV, PERRLA extraocular eye movements were full, no nystagmus and no ptosis noted. *CN V shows normal sensation and jaw opens symmetrically. *CN VII shows normal facial movement symmetrically, upper and lower bilaterally. *CN VIII shows no significant hearing loss on exam *CN IX,,X palate elevated symmetrically *CN XI normal strength in the sternocleidomastoid muscles, symmetrical shoulder shrugging. *CN XII tongue protruded in the midline, with normal strength and movement. *SENSORY EXAMINATION light touch intact *REFLEXES: deep tendon reflexes were normal and symmetrical , grade 2/4 diffusely, no pathological reflexes were noted. *CEREBELLAR TESTING normal finger to nose, heel/knee/jett *PAIN LEVEL 0/10 Results - Laboratory Findings CBC and BMP: 11/02/18 11:11 11/02/18 06:12 Abnormal lab findings: Abnormal lab results WBC 13.3 K/mcL (4.3-11.1) H 10/30/18 03:03 RBC 3.00 M/mcL (4.19-5.50) L 11/02/18 11:11 Hgb 9.2 g/dL (12.9-16.9) L 11/02/18 11:11 Hct 29.5 % (37.5-50.1) L 11/02/18 11:11 MCHC 31.2 g/dL (31.6-35.5) L 11/02/18 11:11 11.0 K/mcL (1.6-8.9) H 10/29/18 01:38 PT 12.4 Seconds (9.4-12.1) H 10/29/18 01:38 Sodium 148 mEq/L (136-145) H 10/29/18 01:38 Chloride 109 mEq/L (98-107) H 11/02/18 06:12 Carbon Dioxide 30 mEq/L (23-29) H 10/29/18 16:19 BUN 36 mg/dL (8-23) H 11/02/18 06:12 1.55 mg/dL (0.70-1.30) H 10/30/18 03:03 Est GFR ( Amer) 52 (> 60) L 10/30/18 03:03 Est GFR (Non-Af Amer) 58 (> 60) L 10/31/18 05:00 33 (6-26) H 11/02/18 06:12 Glucose 111 mg/dL (70-105) H 11/02/18 06:12 305 (280-300) H 11/02/18 06:12 Calcium 8.3 mg/dL (8.6-10.3) L 11/02/18 06:12 0.04 ng/mL (< 0.04) H* 10/29/18 16:19 Ur Specific [place] 1.006 (1.010-1.025) L 10/29/18 06:20 Consult Discharge Plan - Plan Referrals: Yossi Snell MD [Partnered Physician] - 11/08/18 1:30 pm <Dickson Gibson - Last Filed: 11/02/18 17:44> Date of Encounter: 11/02/18 Assessment and Plan (1) Parkinson's disease Current Visit: No Status: Chronic I have personally performed a [id number] assessment of the patient and have reviewed the PA/[employer] MA[employer] note. My impressions are as follows: The chart was reviewed, patient was seen and examined independently. Ultimately, it is possible that the Sinemet could be contributing to the orthostasis, a dysautonomia associated with the Parkinson's disease may also be a potential cause, or perhaps even the metoprolol. As above how would rather try to taper him off the metoprolol prior to decreasing the carbidopa levodopa. I will reevaluate him tomorrow. (2) Syncope Current Visit: Yes Status: Acute Qualifiers: Syncope type: unspecified Qualified Code(s): R55 - Syncope and collapse History of Present Illness HPI: The chart was reviewed, the patient was seen and examined. I agree with the history of present illness as documented above by the CANE STRIPPER. Patient is admitted for an episode of syncope. All Systems: The remainder of the systems were reviewed and are negative Review of Systems: The balance of the systems review is negative. Physical Examination - Vital Signs Vital Signs: Initial Vital Signs Temp Pulse Resp BP Pulse Ox 97.7 F 82 14 124/76 92 10/29/18 00:53 10/29/18 00:53 10/29/18 00:53 10/29/18 00:53 10/29/18 00:53 - Exam Exam: I have personally performed a [id number] assessment of the patient and have reviewed the PA/[employer] MANAGER note. My impressions are as follows: I agree with the neurologic examination is documented above. Results - Laboratory Findings CBC and BMP: 11/02/18 11:11 11/02/18 06:12 Abnormal lab findings: Abnormal lab results WBC 13.3 K/mcL (4.3-11.1) H 10/30/18 03:03 RBC 3.00 M/mcL (4.19-5.50) L 11/02/18 11:11 Hgb 9.2 g/dL (12.9-16.9) L 11/02/18 11:11 Hct 29.5 % (37.5-50.1) L 11/02/18 11:11 MCHC 31.2 g/dL (31.6-35.5) L 11/02/18 11:11 11.0 K/mcL (1.6-8.9) H 10/29/18 01:38 PT 12.4 Seconds (9.4-12.1) H 10/29/18 01:38 Sodium 148 mEq/L (136-145) H 10/29/18 01:38 Chloride 109 mEq/L (98-107) H 11/02/18 06:12 Carbon Dioxide 30 mEq/L (23-29) H 10/29/18 16:19 BUN 36 mg/dL (8-23) H 11/02/18 06:12 1.55 mg/dL (0.70-1.30) H 10/30/18 03:03 Est GFR ( Amer) 52 (> 60) L 10/30/18 03:03 Est GFR (Non-Af Amer) 58 (> 60) L 10/31/18 05:00 33 (6-26) H 11/02/18 06:12 Glucose 111 mg/dL (70-105) H 11/02/18 06:12 305 (280-300) H 11/02/18 06:12 Calcium 8.3 mg/dL (8.6-10.3) L 11/02/18 06:12 0.04 ng/mL (< 0.04) H* 10/29/18 16:19 Ur Specific [place] 1.006 (1.010-1.025) L 10/29/18 06:20
--- NOTE | 2018-11-02 18:18 | Internal Med Progress Note ---
Hospitalist Progress Note - Encounter Date of Encounter: 11/02/18 Time of Encounter: 10:00 - Subjective Interval History: Patient was seen and examined at bedside continues to experience symptomatic orthostatic hypotension. We will consult neurology as the patient verbalized understanding - Exam Vitals: Temp Pulse Resp BP Pulse Ox 97.8 F 72 16 145/72 98 11/02/18 15:57 11/02/18 15:57 11/02/18 15:57 11/02/18 15:57 11/02/18 15:57 Exam: PHYSICAL EXAMINATION: GENERAL APPEARANCE: The patient is alert, oriented and in no acute distress. HEENT: Head is normocephalic. The sinuses are nontender. Pupils are equal and reactive. The nares are patent. Oropharynx clear without lesions. NECK: Supple without lymphadenopathy. HEART: Regular rate and rhythm. LUNGS: No crackles or wheezes are heard. ABDOMEN: Soft, nontender, nondistended with good bowel sounds heard. Inguinal area is normal. EXTREMITIES: Without cyanosis, clubbing or edema. NEUROLOGICAL: Gross nonfocal. SKIN: Warm and dry without any rash. - Assessment and Plan (1) Parkinson's disease Current Visit: No Status: Chronic Assessment and Plan: Stable, continue home meds. Parkinson' disease has known long-term complication of syncope due to orthostatic hypotension. Education provided about fall and safety precaution. Consult neurology suspect Sinemet may be contributing to orthostatic (2) HTN (hypertension) Current Visit: No Status: Acute Assessment and Plan: Episodic low BP, Metoprolol dose decreased to 50 mg daily from 100 mg. as well as decrease losartan to 50 mg daily Continue monitoring. 11/02 Continues to experience symptomatic orthostatic hypotension however he is somewhat hypertensive at rest he does have history of cerebral aneurysms would like to keep systolic less than 160 at rest. We will taper metoprolol and losartan down to 25 mg (3) CKD (chronic kidney disease), stage III Current Visit: No Status: Chronic Assessment and Plan: Cr at baseline. Continue monitoring. (4) Leukocytosis Current Visit: Yes Status: Resolved Assessment and Plan: Improved No signs of infection. UA normal. CXR no consolidation. Blood Cx pending. (5) Syncope Current Visit: Yes Status: Acute Assessment and Plan: Rafi Tanner is an 83-year-old man with Parkinsons disease, CKD, COPD, and known to have cerebral aneurysms undergoing watchful observation whose last admission was complicated by bowel obstruction requiring surgical intervention and PEG tube placement for enteral nutrition. He has suffered multiple syncopal episodes and was taken to [facility] for a syncopal episode that occurred while staff his care home were walking with him. - His vitals were notable for episodic low BP. Trop was normal. EKG showed LAFB. - Was found high Na level and received IVF, Na level currently normal. - Pt have multiple risk factors including Parkinson's disease and BPH currently on Flomax. - ECHO in 06/2018 was unremarkable. will not repeat. - Orthostatic BP this morning showed 139/66 101/55 92/53 patient was symptomatic - Carotid doppler ordered nonstenotic plaque bilaterally - BB dose lowered. Continue monitoring BP. - Elastic hose ordered. pt encouraged to drink a little more water as long as his kidney can tolerated, has known Hx of CKD. Initiated on low dose Midodrine 11/01 Sodium level improved encourage patient to drink fluids Multiple risk factors including Parkinson's BPH and currently on Flomax Orthostatic blood pressure continues to show significant drop in patient is symptomatic Initiated on Midodrine will increase BB dose lowered cont monitoring BP Cont CHAS hose - 11/02 Most likely due to orthostatic hypotension continues to have symptoms on position changes He does have history of cerebral aneurysms will need to be cautious with resting blood pressure maintain systolic less than 160 we will decrease metoprolol as well as losartan to 25 mg Neuro has been consulted-unsure if Sinemet may be contributing to symptoms (6) Hypernatremia Current Visit: Yes Status: Resolved Assessment and Plan: Resolved continue to monitor - Time Spent with Patient Total time spent is greater than 50% in coordination of care (as documented) at patient's floor/unit and/or counseling patient: Internal Medicine: Result - Labs CBC & Chem 7: 11/02/18 11:11 11/02/18 06:12 Labs: Short CBC 11/02/18 Range/Units 11:11 WBC 10.9 (4.3-11.1) K/mcL Hgb 9.2 L (12.9-16.9) g/dL Hct 29.5 L (37.5-50.1) % Plt Count 217 (140-400) K/mcL Neutrophils # 6.7 (1.6-8.9) K/mcL BMP 11/02/18 06:12 Sodium 143 Potassium 3.6 Chloride 109 H Carbon Dioxide 26 BUN 36 H Creatinine 1.08 Glucose 111 H Calcium 8.3 L - ABG Interpretation ABG results: PT/INR, D-dimer PT 12.4 Seconds (9.4-12.1) H 10/29/18 01:38 - VTE Documentation of Mechanical Device: Graduated compression elastic hosiery Consult Discharge Plan - Plan Referrals: Yossi Snell MD [Partnered Physician] - 11/08/18 1:30 pm (2) HTN (hypertension) Qualifiers: Hypertension type: essential hypertension Qualified Code(s): I10 - Essential (primary) hypertension (4) Leukocytosis Qualifiers: Leukocytosis type: unspecified Qualified Code(s): D72.829 - Elevated white blood cell count, unspecified (5) Syncope Qualifiers: Syncope type: unspecified Qualified Code(s): R55 - Syncope and collapse
[2018-11-02] MEDS: Melatonin 3 MG TABLET PO SCH (21:27)
[2018-11-03] MEDS: *HR* Heparin 5,000 UNIT/ML VIAL SQ SCH ×3 (05:52→20:01)
[2018-11-03 06:37] LABS: Basophils # 0.1 K/mcL (0.0-0.2); Basophils % 0.6 %; Eosinophils # 0.5 K/mcL (0.0-0.6); Eosinophils % 4.1 %; Hematocrit 29.3 % (37.5-50.1); Hemoglobin 9.3 g/dL (12.9-16.9); Immature Granulocytes % 1.5 % (0-4); Lymphocytes # 2.7 K/mcL (0.6-4.6); Lymphocytes % 23.7 %; Mean Corpuscular HGB Conc 31.7 g/dL (31.6-35.5); Mean Corpuscular Hemoglobin 30.5 pg (28.0-33.3); Mean Corpuscular Volume 96.1 fL (83.0-100.0); Mean Platelet Volume 10.8 fL (9.4-12.4); Monocytes # 0.9 K/mcL (0.0-1.3); Monocytes % 8.1 %; Platelet Count 250 K/mcL (140-400); Red Blood Count 3.05 M/mcL (4.19-5.50); Red Cell Distribution Width 14.6 % (11.5-14.5); White Blood Count 11.3 K/mcL (4.3-11.1)
[2018-11-03 06:43] LABS: BUN/Creatinine Ratio 32 (6-26); Blood Urea Nitrogen 33 mg/dL (8-23); Calcium 8.4 mg/dL (8.6-10.3); Carbon Dioxide 26 mEq/L (23-29); Chloride 109 mEq/L (98-107); Glucose 106 mg/dL (70-105); Osmolality,Calculated 298 (280-300); Potassium 3.9 mEq/L (3.5-5.1); Sodium 140 mEq/L (136-145); eGFR For African Americans > 60 (> 60); eGFR For Non-African Americans > 60 (> 60)
[2018-11-03] MEDS: Methyl Salicylate/Menthol 28 GM TUBE TP PRN ×2 (08:45→20:08)
[2018-11-03] MEDS: Carbidopa/Levodopa 25/100 TABLET PO SCH ×4 (08:46→20:01)
[2018-11-03] MEDS: Famotidine 20 MG TABLET PO SCH ×2 (08:47→20:00)
[2018-11-03] MEDS ORDERED: Metoprolol XL (24 HR) Succ 25 MG TAB.ER.24H PO SCH (09:00)
[2018-11-03] MEDS: Acetaminophen 325 MG TABLET PO PRN ×3 (09:55→22:26)
--- NOTE | 2018-11-03 12:34 | Neurology Progress Note ---
Date of Encounter: 11/03/18 Time of Encounter: 12:31 Assessment and Plan (1) Parkinson's disease Current Visit: No Status: Chronic I had a fairly exasperating conversation today with and Ms. Orellana. Unfortunately, his Parkinson's disease advances some patients will become increasingly intolerant of the medication therapy, they may also develop dys autonomias and experience random variations in the blood pressure and other autonomic functions. I did try to explain this to them however I am not exactly certain whether they truly understand. The challenges of this case were also discussed with the hospitalist. Yesterday evening after adjusting his antihypertensives blood pressure 1 up to 170 systolic overnight. However in orthostatic check yesterday revealed a blood pressure of 79/42. Rafi has been in a rehabilitation facility since his last hospital discharge about a month or so ago. I would expect that these challenges may persist. I will maintain his Sinemet therapy at its current dosage. I will follow peripherally. Ultimately they may not be much more to offer from a neurologic perspective. (2) Syncope Current Visit: Yes Status: Acute Qualifiers: Syncope type: unspecified Qualified Code(s): R55 - Syncope and collapse Subjective Interval history: Chart was reviewed, patient was seen and examined. Seems that earlier today when pulse stood up he experienced some dizziness which is likely due to orthostasis. It seems that Rafi's blood pressure has been difficult to regulate. He goes from one extreme to another. She is not uncommon in those individuals with end-stage Parkinson's disease who began to lose the ability to autoregulate there blood pressure this is particularly difficult an individual who likely has atherosclerosis and decreased vascular elasticity. I expect this may be an ongoing issue. He has also been reluctant to wear the CHAS hose is recommended. Objective - Constitutional Vitals: Temp Pulse Resp BP Pulse Ox 98.3 F 80 20 111/62 94 11/03/18 11:00 11/03/18 11:12 11/03/18 11:00 11/03/18 11:12 11/03/18 11:00 Exam: Exam: Examination: General Examination: *CONSTITUTIONAL: Alert and oriented x3, no acute distress *GENERAL APPEARANCE OF PATIENT Generally ill appearing male *EYES: pupils equal, round, reactive to light and accommodation, conjunctiva clear *CARDIOVASCULAR no peripheral edema, distal temperature normal, dorsalis pedis pulses normal. See vitals Musculoskeletal: *GAIT AND STATION Deferred d/t leg weakness and syncope with orthostasis *ASSESSMENT OF MUSCLE STRENGTH IN THE UPPER AND LOWER EXTREMITIES bilate ral deltoid, bicep, tricep, information technology program manager strength, hip flexors ,anterior tibialis, dorsoflexion of the foot 5/5 *MUSCLE TONE IN THE UPPER AND LOWER EXTREMITIES bradykinesia and rigidity in all 4 extremities Neurological: *ORIENTATION to person, situation, time and place *RECURRENT AND REMOTE MEMORY intact *ATTENTION AND CONCENTRATION are normal *LANGUAGE FUNCTION no significant aphasia or dysarthia was noted. *FUND OF KNOWLEDGE aware of current events, past history, vocabulary *MENTAL attention span and concentration normal. *CN II optic fundi were normal, no papilledema noted. *CN III,IV, PERRLA extraocular eye movements were full, no nystagmus and no ptosis noted. *CN V shows normal sensation and jaw opens symmetrically. *CN VII shows normal facial movement symmetrically, upper and lower bilaterally. *CN VIII shows no significant hearing loss on exam *CN IX,,X palate elevated symmetrically *CN XI normal strength in the sternocleidomastoid muscles, symmetrical shoulder shrugging. *CN XII tongue protruded in the midline, with normal strength and movement. *SENSORY EXAMINATION light touch intact *REFLEXES: deep tendon reflexes were normal and symmetrical , grade 2/4 diffusely, no pathological reflexes were noted. *CEREBELLAR TESTING normal finger to nose, heel/knee/jett *PAIN LEVEL 0/10 - VTE Documentation of Mechanical Device: Graduated compression elastic hosiery Results - Laboratory Findings CBC and BMP: 11/03/18 04:00 11/03/18 05:50 Abnormal lab findings: Abnormal lab results WBC 11.3 K/mcL (4.3-11.1) H 11/03/18 04:00 RBC 3.05 M/mcL (4.19-5.50) L 11/03/18 04:00 Hgb 9.3 g/dL (12.9-16.9) L 11/03/18 04:00 Hct 29.3 % (37.5-50.1) L 11/03/18 04:00 MCHC 31.2 g/dL (31.6-35.5) L 11/02/18 11:11 RDW 14.6 % (11.5-14.5) H 11/03/18 04:00 11.0 K/mcL (1.6-8.9) H 10/29/18 01:38 PT 12.4 Seconds (9.4-12.1) H 10/29/18 01:38 Sodium 148 mEq/L (136-145) H 10/29/18 01:38 Chloride 109 mEq/L (98-107) H 11/03/18 05:50 Carbon Dioxide 30 mEq/L (23-29) H 10/29/18 16:19 BUN 33 mg/dL (8-23) H 11/03/18 05:50 1.55 mg/dL (0.70-1.30) H 10/30/18 03:03 Est GFR ( Amer) 52 (> 60) L 10/30/18 03:03 Est GFR (Non-Af Amer) 58 (> 60) L 10/31/18 05:00 32 (6-26) H 11/03/18 05:50 Glucose 106 mg/dL (70-105) H 11/03/18 05:50 305 (280-300) H 11/02/18 06:12 Calcium 8.4 mg/dL (8.6-10.3) L 11/03/18 05:50 0.04 ng/mL (< 0.04) H* 10/29/18 16:19 Ur Specific [place] 1.006 (1.010-1.025) L 10/29/18 06:20 Consult Discharge Plan - Plan Referrals: Yossi Snell MD [Partnered Physician] - 11/08/18 1:30 pm
--- NOTE | 2018-11-03 14:09 | Internal Med Progress Note ---
Hospitalist Progress Note - Encounter Date of Encounter: 11/03/18 Time of Encounter: 14:03 - Subjective Interval History: She was seen and examined at bedside currently continues to experience orthostatic hypotension-encouraging patient to wear CHAS hose unable to titrate blood pressure medication any lower noted that he had elevated blood pressure overnight. Discussed with neurology who also had a long discussion with patient and at bedside. Currently we will monitor for 1 more night and may need to go back up to 50 mg metoprolol if he continues to stay stable we will discharge him back to [facility] - Exam Vitals: Temp Pulse Resp BP Pulse Ox 98.3 F 80 20 111/62 94 11/03/18 11:00 11/03/18 11:12 11/03/18 11:00 11/03/18 11:12 11/03/18 11:00 Exam: PHYSICAL EXAMINATION: GENERAL APPEARANCE: The patient is alert, oriented and in no acute distress. HEENT: Head is normocephalic. The sinuses are nontender. Pupils are equal and reactive. The nares are patent. Oropharynx clear without lesions. NECK: Supple without lymphadenopathy. HEART: Regular rate and rhythm. LUNGS: No crackles or wheezes are heard. ABDOMEN: Soft, nontender, nondistended with good bowel sounds heard. Inguinal area is normal. EXTREMITIES: Without cyanosis, clubbing or edema. NEUROLOGICAL: Gross nonfocal. SKIN: Warm and dry without any rash. - Assessment and Plan (1) Parkinson's disease Current Visit: No Status: Chronic Assessment and Plan: Stable, continue home meds. Parkinson' disease has known long-term complication of syncope due to orthostatic hypotension. Education provided about fall and safety precaution. Consult neurology suspect Sinemet may be contributing to orthostatic 11/03 Neurology has been consulted-concern for dysautonomias and other autonomic functions-associated with Parkinson's disease. Continue with current dosage of Sinemet (2) HTN (hypertension) Current Visit: No Status: Acute Assessment and Plan: Episodic low BP, Metoprolol dose decreased to 50 mg daily from 100 mg. as well as decrease losartan to 50 mg daily Continue monitoring. 11/02 Continues to experience symptomatic orthostatic hypotension however he is somewhat hypertensive at rest he does have history of cerebral aneurysms would like to keep systolic less than 160 at rest. We will taper metoprolol and losartan down to 25 mg 11/03 Patient continues to express orthostatic hypotension suspect this may be related to his Parkinson's disease however we are unable to taper metoprolol and losartan any lower he did have elevated blood pressure overnight-we will monitor closely and may have to increase metoprolol back up to 50 mg daily. We would like to keep systolic blood pressure around 160 since patient does have history of cerebral aneurysm (3) CKD (chronic kidney disease), stage III Current Visit: No Status: Chronic Assessment and Plan: Cr at baseline. Continue monitoring. (4) Leukocytosis Current Visit: Yes Status: Resolved Assessment and Plan: Improved No signs of infection. UA normal. CXR no consolidation. Blood Cx pending. (5) Syncope Current Visit: Yes Status: Acute Assessment and Plan: Rafi Tanner is an 83-year-old man with Parkinsons disease, CKD, COPD, and known to have cerebral aneurysms undergoing watchful observation whose last admission was complicated by bowel obstruction requiring surgical intervention and PEG tube placement for enteral nutrition. He has suffered multiple syncopal episodes and was taken to [facility] for a syncopal episode that occurred while staff his jail were [facility] with him. - His vitals were notable for episodic low BP. Trop was normal. EKG showed LAFB. - Was found high Na level and received IVF, Na level currently normal. - Pt have multiple risk factors including Parkinson's disease and BPH currently on Flomax. - ECHO in 06/2018 was unremarkable. will not repeat. - Orthostatic BP this morning showed 139/66 101/55 92/53 patient was symptomatic - Carotid doppler ordered nonstenotic plaque bilaterally - BB dose lowered. Continue monitoring BP. - Elastic hose ordered. pt encouraged to drink a little more water as long as his kidney can tolerated, has known Hx of CKD. Initiated on low dose Midodrine 11/01 Sodium level improved encourage patient to drink fluids Multiple risk factors including Parkinson's BPH and currently on Flomax Orthostatic blood pressure continues to show significant drop in patient is symptomatic Initiated on Midodrine will increase BB dose lowered cont monitoring BP Cont CHAS hose - 11/02 Most likely due to orthostatic hypotension continues to have symptoms on position changes He does have history of cerebral aneurysms will need to be cautious with resting blood pressure maintain systolic less than 160 we will decrease metoprolol as well as losartan to 25 mg Neuro has been consulted-unsure if Sinemet may be contributing to symptoms 11/03 Suspect this is related to orthostatic hypotension as well as advancing Parkinson's disease. May be developing dysautonomia-which may be causing random variations and the patient's blood pressure. Neurology consulted-no change in Sinemet dose at this time Encouraging patient to wear CHAS hose Will not decrease blood pressure medication in the lower may have to increase back up 50 mg since he did have an elevated blood pressure overnight he does have a history of cerebral aneurysms and would like to keep systolic blood pressure around 160 (6) Hypernatremia Current Visit: Yes Status: Resolved - Time Spent with Patient Total time spent is greater than 50% in coordination of care (as documented) at patient's floor/unit and/or counseling patient: Internal Medicine: Result - Labs CBC & Chem 7: 11/03/18 04:00 11/03/18 05:50 Labs: Short CBC 11/02/18 11/03/18 Range/Units 11:11 04:00 WBC 10.9 11.3 H (4.3-11.1) K/mcL Hgb 9.2 L 9.3 L (12.9-16.9) g/dL Hct 29.5 L 29.3 L (37.5-50.1) % Plt Count 217 250 (140-400) K/mcL Neutrophils # 6.7 7.0 (1.6-8.9) K/mcL BMP 11/03/18 05:50 Sodium 140 Potassium 3.9 Chloride 109 H Carbon Dioxide 26 BUN 33 H Creatinine 1.03 Glucose 106 H Calcium 8.4 L - ABG Interpretation ABG results: PT/INR, D-dimer PT 12.4 Seconds (9.4-12.1) H 10/29/18 01:38 - VTE Documentation of Mechanical Device: Graduated compression elastic hosiery Consult Discharge Plan - Plan Referrals: Yossi Snell MD [Partnered Physician] - 11/08/18 1:30 pm (2) HTN (hypertension) Qualifiers: Hypertension type: essential hypertension Qualified Code(s): I10 - Essential (primary) hypertension (4) Leukocytosis Qualifiers: Leukocytosis type: unspecified Qualified Code(s): D72.829 - Elevated white blood cell count, unspecified (5) Syncope Qualifiers: Syncope type: unspecified Qualified Code(s): R55 - Syncope and collapse
[2018-11-03] MEDS: Melatonin 3 MG TABLET PO SCH (20:00)
[2018-11-04] MEDS: *HR* Heparin 5,000 UNIT/ML VIAL SQ SCH ×2 (05:48→13:32)
[2018-11-04 07:43] LABS: Hematocrit 26.1 % (37.5-50.1); Hemoglobin 8.4 g/dL (12.9-16.9); Mean Corpuscular HGB Conc 32.2 g/dL (31.6-35.5); Mean Corpuscular Volume 96.3 fL (83.0-100.0); Mean Platelet Volume 11.3 fL (9.4-12.4); Platelet Count 212 K/mcL (140-400); Red Blood Count 2.71 M/mcL (4.19-5.50); Red Cell Distribution Width 14.6 % (11.5-14.5); White Blood Count 7.9 K/mcL (4.3-11.1)
[2018-11-04 08:02] LABS: BUN/Creatinine Ratio 34 (6-26); Blood Urea Nitrogen 33 mg/dL (8-23); Calcium 8.3 mg/dL (8.6-10.3); Carbon Dioxide 28 mEq/L (23-29); Chloride 106 mEq/L (98-107); Glucose 104 mg/dL (70-105); Osmolality,Calculated 296 (280-300); Potassium 3.5 mEq/L (3.5-5.1); Sodium 139 mEq/L (136-145); eGFR For African Americans > 60 (> 60); eGFR For Non-African Americans > 60 (> 60)
[2018-11-04] MEDS ORDERED: Metoprolol XL (24 HR) Succ 25 MG TAB.ER.24H PO SCH (09:00)
[2018-11-04 09:29] LABS: Immature Reticulocyte % 9.3 % (11.0-38.0); Retculocyte # 0.08 M/mcL (0.05-0.10); Reticulocyte % 2.9 % (1.6-2.8)
[2018-11-04] MEDS: Carbidopa/Levodopa 25/100 TABLET PO SCH ×3 (09:35→15:35)
[2018-11-04] MEDS: Famotidine 20 MG TABLET PO SCH (09:36)
[2018-11-04] MEDS: Methyl Salicylate/Menthol 28 GM TUBE TP PRN (09:39)
[2018-11-04] MEDS: Acetaminophen 325 MG TABLET PO PRN (09:39)
[2018-11-04 09:54] LABS: % Iron Saturation 45 % (20-55); Iron 81 mcg/dL (65-175); Transferrin 128 mg/dL (203-362)
[2018-11-04 10:07] LABS: Ferritin 739 ng/mL (20-250)
[2018-11-04 10:21] LABS: Folate > 22.3 ng/mL (3.0-16.0); Vitamin B12 392 pg/mL (250-1100)
--- NOTE | 2018-11-04 11:47 | Internal Med Progress Note ---
Hospitalist Progress Note - Encounter Date of Encounter: 11/04/18 Time of Encounter: 11:47 - Exam Vitals: Temp Pulse Resp BP Pulse Ox 98.0 F 73 20 122/70 98 11/04/18 11:00 11/04/18 11:00 11/04/18 11:00 11/04/18 11:00 11/04/18 11:00 - Assessment and Plan (1) Parkinson's disease Current Visit: No Status: Chronic (2) HTN (hypertension) Current Visit: No Status: Acute (3) CKD (chronic kidney disease), stage III Current Visit: No Status: Chronic (4) Leukocytosis Current Visit: Yes Status: Resolved (5) Syncope Current Visit: Yes Status: Acute (6) Hypernatremia Current Visit: Yes Status: Resolved - Time Spent with Patient Total time spent is greater than 50% in coordination of care (as documented) at patient's floor/unit and/or counseling patient: Internal Medicine: Result - Labs CBC & Chem 7: 11/04/18 04:00 11/04/18 04:00 Labs: Short CBC 11/04/18 Range/Units 04:00 WBC 7.9 (4.3-11.1) K/mcL Hgb 8.4 L (12.9-16.9) g/dL Hct 26.1 L (37.5-50.1) % Plt Count 212 (140-400) K/mcL BMP 11/04/18 04:00 Sodium 139 Potassium 3.5 Chloride 106 Carbon Dioxide 28 BUN 33 H Creatinine 0.96 Glucose 104 Calcium 8.3 L - ABG Interpretation ABG results: PT/INR, D-dimer PT 12.4 Seconds (9.4-12.1) H 10/29/18 01:38 - VTE Documentation of Mechanical Device: Graduated compression elastic hosiery Consult Discharge Plan - Plan Referrals: Yossi Snell MD [Partnered Physician] - 11/08/18 1:30 pm ___ (2) HTN (hypertension) Qualifiers: Hypertension type: essential hypertension Qualified Code(s): I10 - Essential (primary) hypertension (4) Leukocytosis Qualifiers: Leukocytosis type: unspecified Qualified Code(s): D72.829 - Elevated white blood cell count, unspecified (5) Syncope Qualifiers: Syncope type: unspecified Qualified Code(s): R55 - Syncope and collapse
[2018-11-04 15:05] LABS: Hemoglobin 9.1 g/dL (12.9-16.9)
[2018-11-04 17:54] VITALS: BP 159/72
--- NOTE | 2018-11-04 17:55 | Discharge Summary ---
- NOTES TO OUTPATIENT PROVIDER Notes to Outpatient Provider: Patient presented after experiencing syncopal episode he was found to be experiencing orthostatic hypotension-medications have been readjusted and patient was advised to change positions slowly as well as wear CHAS hose. Orders not resulted at time of discharge: Pending orders 11/04/18 08:17 Occult Blood,Stool [BF] Routine 11/05/18 04:00 BMP [Basic Metabolic Panel] AM 0400 CBC no Diff [Complete Blood Count w/o Diff] [HEME] AM 0400 Date of Encounter: 11/04/18 Time of Encounter: 17:51 - Discharge Diagnosis (1) Parkinson's disease Priority: Secondary Status: Chronic (2) HTN (hypertension) Priority: Secondary Status: Acute Qualifiers: Hypertension type: essential hypertension Qualified Code(s): I10 - Essential (primary) hypertension (3) CKD (chronic kidney disease), stage III Priority: Secondary Status: Chronic (4) Leukocytosis Priority: Secondary Status: Resolved Qualifiers: Leukocytosis type: unspecified Qualified Code(s): D72.829 - Elevated white blood cell count, unspecified (5) Syncope Priority: Primary Status: Acute Qualifiers: Syncope type: unspecified Qualified Code(s): R55 - Syncope and collapse (6) Hypernatremia Priority: Secondary Status: Resolved Hospital course: Mr. Tanner is a 83 year old male past medical history of Parkinson's disease cerebral aneurysm CK D COPD was recently admitted to this facility after experiencing a bowel obstruction requiring surgical intervention and PEG tube placement for enternal nutrition. He was discharged to an ECF for further rehabilitation treatment and has been experiencing multiple syncopal episodes. Was with him. Head CT was unremarkable lab work did reveal some hypernatremia which eventually resolved. He was noted to have significant orthostatic hypotension-with systolic dropping down to 79 upon standing. However he did have elevated blood pressure while lying which did pose some concern since he has hx of cerebral aneurysm -attempted to adjust hypertensive medications as w ell as had neurology evaluate the patient - which appears that his parkinson's disease may be causing some dysautonomia- causing random variations in his blood pressure- His metoprolol as well as losartan has been decreased - we will keep sinement at current dose and add CHAS hose- patient blood pressure has stabilized and his blood pressure upon standing has been greater than 100 -patient has been able to ambulate around the room with assistance without becoming lightheaded or dizzy. Advised patient to change positions slowly to where his CHAS hose and to remain hydrated. Patient will be discharged back to [facility] for further rehabilitation and will need to follow-up with primary care provider. Currently he is hemodynamically stable and is ready for discharge. - Time Spent with Patient Total time spent providing and/or coordinating discharge services: - Discharge Medications Prescriptions: New Metoprolol XL (24 HR) Succ [Toprol Xl] 50 mg PO DAILY tab.er.24h Losartan [Cozaar] 25 mg PO DAILY tablet Famotidine [Pepcid] 10 mg PO BID tablet Metoprolol XL (24 HR) Succ [Toprol Xl] 50 mg PO DAILY tab.er.24h Continued Albuterol Sulfate [Albuterol Inhaler] 2 puff IH Q4HR PRN PRN Reason: Shortness Of Breath Fluticasone Propionate Nasal [Flonase] 1 spr NS BID PRN PRN Reason: Allergy Symptoms Tamsulosin HCl [Flomax] 0.4 mg PO DAILY Carbidopa/Levodopa [Carbidopa-Levodopa 25-100 Tab] 2 tab PO 0800,1600 Carbidopa/Levodopa [Carbidopa-Levodopa 25-100 Tab] 1 tab PO 1200,2000 Melatonin 3 mg PO HS tablet Albuterol Neb [Proventil Neb] 2.5 mg IH Q4H PRN PRN Reason: Cough clonazePAM [Clonazepam] 0.5 mg PO Q12H PRN PRN Reason: Anxiety Docusate [Colace] 200 mg PO DAILY Lactulose 10 ml PO DAILY PRN PRN Reason: Constipation Potassium Chloride [K-Tab ER] 20 meq PO BID Quetiapine Fumarate [Seroquel] 50 mg PO HS Tramadol HCl [Ultram] 50 mg PO Q6H PRN 1 Days #4 tablet PRN Reason: Pain Discontinued Losartan Potassium [Cozaar] 50 mg GTUBE DAILY Metoprolol Succinate [Toprol Xl] 50 mg PO DAILY No Action Furosemide [Lasix] 40 mg PO BID PRN PRN Reason: PITTING EDEMA Home Medications: Albuterol Sulfate [Albuterol Inhaler] 2 puff IH Q4HR PRN 12/15/15 [History] Fluticasone Propionate Nasal [Flonase] 1 spr NS BID PRN 12/15/15 [History] Tamsulosin HCl [Flomax] 0.4 mg PO DAILY 08/24/18 [History] Carbidopa/Levodopa [Carbidopa-Levodopa 25-100 Tab] 1 tab PO 1200,2000 08/26/18 [History] Carbidopa/Levodopa [Carbidopa-Levodopa 25-100 Tab] 2 tab PO 0800,1600 08/26/18 [History] Melatonin 3 mg PO HS tablet 09/25/18 [Rx] Albuterol Neb [Proventil Neb] 2.5 mg IH Q4H PRN 10/30/18 [History] Docusate [Colace] 200 mg PO DAILY 10/30/18 [History] Furosemide [Lasix] 40 mg PO BID PRN 10/30/18 [History] Lactulose 10 ml PO DAILY PRN 10/30/18 [History] Potassium Chloride [K-Tab ER] 20 meq PO BID 10/30/18 [History] Quetiapine Fumarate [Seroquel] 50 mg PO HS 10/30/18 [History] clonazePAM [Clonazepam] 0.5 mg PO Q12H PRN 10/30/18 [History] Metoprolol XL (24 HR) Succ [Toprol Xl] 50 mg PO DAILY tab.er.24h 11/01/18 [Rx] Famotidine [Pepcid] 10 mg PO BID tablet 11/04/18 [Rx] Losartan [Cozaar] 25 mg PO DAILY tablet 11/04/18 [Rx] Metoprolol XL (24 HR) Succ [Toprol Xl] 50 mg PO DAILY tab.er.24h 11/04/18 [Rx] Tramadol HCl [Ultram] 50 mg PO Q6H PRN 1 Days #4 tablet 11/04/18 [Rx] Allergies/Adverse Reactions: Allergy/AdvReac Type Severity Reaction Status Date / Time No Known Allergies Allergy Verified 10/30/18 10:07 Date of admission: 11/02/18 12:39 Primary care physician: PCP NONE Consults: 10/29/18 01:48 Consult to Nutrition [CONS] Routine Comment: Consulting Provider: NUTRITION Reason for Dietary Consult: Tube Feed Start & Manage 10/29/18 12:15 Consult to Invasive Line Access Team [CONS] Stat Reason for Consult: poor access Line Type: EPIV 10/29/18 12:16 Consult to Invasive Line Access Team [CONS] Routine Reason for Consult: poor access Line Type: EPIV 10/30/18 08:55 Consult to Maintenance Director [CONS] Routine Reason for SW Consult: PATIENT FROM [facility] 11/02/18 13:18 Consult to Neurology [CONS] Routine Consulting Provider: [facility] Reason for Consult: orthostatic vs Time Notified: 13:18 Call Completed: Yes Discharging clinician: Rosenda Alvarez Anticipated date of discharge: 11/04/18 - Constitutional Vitals: Temp Pulse Resp BP Pulse Ox 97.5 F L 76 16 103/55 97 11/04/18 15:24 11/04/18 15:24 11/04/18 15:24 11/04/18 15:24 11/04/18 15:24 Exam: PHYSICAL EXAMINATION: GENERAL APPEARANCE: The patient is alert, oriented and in no acute distress. HEENT: Head is normocephalic. The sinuses are nontender. Pupils are equal and reactive. The nares are patent. Oropharynx clear without lesions. NECK: Supple without lymphadenopathy. HEART: Regular rate and rhythm. LUNGS: No crackles or wheezes are heard. ABDOMEN: Soft, nontender, nondistended with good bowel sounds heard. Inguinal area is normal. EXTREMITIES: Without cyanosis, clubbing or edema. NEUROLOGICAL: Gross nonfocal. SKIN: Warm and dry without any rash. - Patient Status Disposition: Transfer SNF Condition: Good Functional capacity at discharge: uses cane/walker Overall status at discharge: patient is back to baseline - Discharge Instructions Instructions: Acute Respiratory Distress Syndrome (DC), Acute Kidney Injury (DC), Syncope (DC), Chronic Obstructive Pulmonary Disease (DC), Sepsis (DC), Chronic Hypertension (DC), Pneumonia (DC) Follow Up With: Yossi Snell MD [Partnered Physician] - 11/08/18 1:30 pm Additional Instructions: [place] thickened diet with ground meat Tube feeding Jevity 1.5 -60 mL's continuous-flush PEG tube with 200 mL of water every 6 hours Patient is to slowly change positions and to stand for a few moments before walking Wear CHAS hose - Diet and Activity Activity: as per physical therapy, increase activity as tolerated - VTE Documentation of Mechanical Device: Graduated compression elastic hosiery
--- NOTE | 2018-11-04 18:21 | Physician Discharge Referral ---
ExtendedCare Referral Info Transfer To: [place] Provider in Charge: Antonio Herzog Provider in Charge after Transfer: PCP Institutional Level of Care: Skilled - Diagnosis (1) Parkinson's disease Priority: Secondary Status: Chronic (2) HTN (hypertension) Priority: Secondary Status: Acute (3) CKD (chronic kidney disease), stage III Priority: Secondary Status: Chronic (4) Leukocytosis Priority: Secondary Status: Resolved (5) Syncope Priority: Primary Status: Acute (6) Hypernatremia Priority: Secondary Status: Resolved - Transfer Medications Prescriptions: Tramadol HCl [Ultram] 50 mg PO Q6H PRN 1 Days #4 tablet PRN Reason: Pain Home Medications: Albuterol Sulfate [Albuterol Inhaler] 2 puff IH Q4HR PRN 12/15/15 [History] Fluticasone Propionate Nasal [Flonase] 1 spr NS BID PRN 12/15/15 [History] Tamsulosin HCl [Flomax] 0.4 mg PO DAILY 08/24/18 [History] Carbidopa/Levodopa [Carbidopa-Levodopa 25-100 Tab] 1 tab PO 1200,2000 08/26/18 [History] Carbidopa/Levodopa [Carbidopa-Levodopa 25-100 Tab] 2 tab PO 0800,1600 08/26/18 [History] Melatonin 3 mg PO HS tablet 09/25/18 [Rx] Albuterol Neb [Proventil Neb] 2.5 mg IH Q4H PRN 10/30/18 [History] Docusate [Colace] 200 mg PO DAILY 10/30/18 [History] Furosemide [Lasix] 40 mg PO BID PRN 10/30/18 [History] Lactulose 10 ml PO DAILY PRN 10/30/18 [History] Potassium Chloride [K-Tab ER] 20 meq PO BID 10/30/18 [History] Quetiapine Fumarate [Seroquel] 50 mg PO HS 10/30/18 [History] clonazePAM [Clonazepam] 0.5 mg PO Q12H PRN 10/30/18 [History] Metoprolol XL (24 HR) Succ [Toprol Xl] 50 mg PO DAILY tab.er.24h 11/01/18 [Rx] Famotidine [Pepcid] 10 mg PO BID tablet 11/04/18 [Rx] Losartan [Cozaar] 25 mg PO DAILY tablet 11/04/18 [Rx] Metoprolol XL (24 HR) Succ [Toprol Xl] 50 mg PO DAILY tab.er.24h 11/04/18 [Rx] Tramadol HCl [Ultram] 50 mg PO Q6H PRN 1 Days #4 tablet 11/04/18 [Rx] Allergies/Adverse Reactions: Allergy/AdvReac Type Severity Reaction Status Date / Time No Known Allergies Allergy Verified 10/30/18 10:07 - Respiratory Orders Smoking Cessation: Smoking cessation has been advised. For more information, call the [place] Tobacco Quit Line at 2-833-JYAB-NOW. - Advance Directives Code Status: Full Code - Mobility Orders Chair, Ambulate - Rehabiliation Orders Rehab Potential: Good Rehab Orders: Evaluation for Physical Therapy, Evaluation for Occupational Therapy Other: Patient is to slowly change positions and to stand for a few moments before walking Wear CHAS hose - Diet Orders Tube Feedings (type/amount/rate): Tube feeding Jevity 1.5 -60 mL's continuous-flush PEG tube with 200 mL of water every 6 hours Flush Tube (type/amount/frequency): -flush PEG tube with 200 mL of water every 6 hours CERTIFICATION: I certify that the transfer of the above named patient to an Extended Care Facility is necessary for the continuing treatment of the diagnosis listed. The above information is true and accurate reflection of patient's current condition. Confidential - Redisclosure prohibited without a patient's written consent.
== END 2018-11-04 18:58 | DRG 312 ==
LOC: 3BNU → SUATTDRO 10-29 00:40
PROVIDERS: ADMIT Internal Medicine; ATTEND Family Medicine